=== PATIENT | male | born 1985 | race Two or more races ===

== ENCOUNTER 2017-11-16 10:20 | Emergency (ER) | payer MEDICAID ==
[~2017-11-16] VITALS: Ht 167.6 cm; Wt 79.0 kg
[2017-11-16] MEDS ORDERED: KETOROLAC 30 MG/1 ML ONE (10:53)
[2017-11-16] MEDS ORDERED: KETOROLAC 30 MG/1 ML IM ONE (11:00)
[2017-11-16 11:25] VITALS: BP 105/74
== END 2017-11-16 12:08 | disposition home or self-care (01) ==
LOC: ED 12:05
DX: R07.89 Other chest pain (principal); R09.1 Pleurisy
CPT/HCPCS: 36415; 71046; 84484; 93005; 96372; 99285; J1885